=== PATIENT | male | born 1980 | race African-American/Black ===

== ENCOUNTER 2016-08-05 13:40 | Emergency (ER) | payer OTHER ==
[2016-08-05 13:48] VITALS: BP 135/90; PULSE 102; TEMP 98.2; BMI 51.7
--- NOTE | 2016-08-05 13:53 | PDOC ---
History of Present Illness - General Chief Complaint: Nasal Bleeding Stated Complaint: Nasal Bleeding Time Seen by Provider: 08/05/16 13:51 History Source: Patient Exam Limitations: No Limitations - History of Present Illness Initial Comments: 36 y/o afebrile morbidly obese male with PMH HTN and DM c/o nose bleed today. The patient states he had a spontaneous nosebleed this afternoon that lasted approximately 20 minutes and stopped on its own. The patient is not on a blood thinner. He denies trauma to the nose. He does admit his eyes were watery and puffy yesterday. Past History - Past Medical History Allergies/Adverse Reactions: Allergies Allergy/AdvReac Type Severity Reaction Status Date / Time iodine Allergy Swelling Verified 08/05/16 13:48 shellfish derived Allergy Swelling Verified 08/05/16 13:48 Home Medications: Ambulatory Orders Cyclobenzaprine HCl [Flexeril -] 10 mg PO TID #21 tablet 08/07/13 Naproxen [Naprosyn -] 500 mg PO BID #14 tablet 08/07/13 Dementia: Yes HTN: Yes Hypercholesterolemia: Yes - Psycho/Social/Smoking Cessation Hx Anxiety: No Suicidal Ideation: No Smoking Status: Yes Smoking History: Current some day smoker Number of Cigarettes Smoked Daily: 1 Information on smoking cessation initiated: No Hx Alcohol Use: Yes (SOCIAL) Drug/Substance Use Hx: No Substance Use Type: None Review of Systems - Review of Systems Able to Perform ROS?: Yes Constitutional: No: Symptoms Reported HEENTM: Yes: Nose Bleeding, Other (watery, swollen eyes yesterday.). No: Recent change in vision Respiratory: No: Cough, Shortness of Breath Cardiac (ROS): No: Chest Pain Neurological: No: Headache *Physical Exam - Vital Signs Last Vital Signs Temp Pulse Resp BP Pulse Ox 98.2 F 102 H 20 135/90 96 08/05/16 13:45 08/05/16 13:45 08/05/16 13:45 08/05/16 13:45 08/05/16 13:45 - Physical Exam General Appearance: Yes: Obese (Morbidly obese) HEENT: positive: EOMI, YULIANA, Other (Left inflammed nasal turbinate) Neurologic: positive: transportation attendant II-XII NML intact, Fully Oriented, Alert Medical Decision Making - Medical Decision Making A/P: 36 y/o well appearing, morbidly obese, ambulatory male with a spontaneous nose bleed that has resolved. Reassured the patient. Suggested he apply pressure to bridge of nose and hold head down if it starts bleeding again. Instructed to call his PCP within 1 week if symptoms persist and return to the ER if he develops a nose bleed that does not stop. The patient verbalizes understanding of all instructions, has no further questions and is awaiting discharge. *DC/Admit/Observation/Transfer Diagnosis at time of Disposition: Nosebleed - Discharge Dispostion Disposition: HOME Condition at time of disposition: Good - Referrals Referrals: Abhishek Deleon MD [Primary Care Provider] - - Patient Instructions Printed Discharge Instructions: DI for Nosebleed Additional Instructions: Discharge Instructions: -Return to the ER with any worsening or concerning symptoms
== END 2016-08-05 14:06 | disposition home or self-care (01) ==
LOC: JERFT 13:40
DX: R04.0 Epistaxis (principal); I10 Essential (primary) hypertension; F03.90 Unspecified dementia, unspecified severity, without behavioral disturbance, psychotic disturbance, mood disturbance, and anxiety; E78.00 Pure hypercholesterolemia, unspecified; F17.210 Nicotine dependence, cigarettes, uncomplicated
CPT/HCPCS: 99281-25

== ENCOUNTER 2016-08-14 07:06 | Emergency (ER) | payer OTHER ==
[2016-08-14 07:25] VITALS: TEMP 98; BMI 36.5
[2016-08-14] MEDS ORDERED: LORAZEPAM CARPU-JECT 2 MG/ML DISP.SYRIN IVPUSH ONE (07:45)
[2016-08-14] MEDS ORDERED: SODIUM CHLORIDE 1,000 ML IV STA (07:45)
--- NOTE | 2016-08-14 07:46 | PDOC ---
History of Present Illness - General History Source: Patient, Sibling (Sister) Exam Limitations: No Limitations - History of Present Illness Initial Comments: 08/14/16 08:18 The patient is a 36 year old male with a significant past medical history of diabetes, hypertension, and multiple substance abuse, who presents to the ER with chest pain and agitation for one day. Sister is at bedside. Patient admits to doing PCP and alcohol every day for the past three days. Sister brought patient to the hospital after patient started complaining of chest pain. Patient is unable to characterize the specific of the pain. As per sister, patient has been more agitated and verbally inappropriate for the past few days. Denies nausea, vomiting Denies syncope Denies hallucinations Denies any other drug use Denies fever, chills, cough, shortness of breath 08/14/16 08:56 Paranoid is currently paranoid that someone will come for him and kill him. <Fadia Boo - Last Filed: 08/14/16 09:17> - General History Source: Patient, Family Exam Limitations: Clinical Condition <Mimi Welsh - Last Filed: 08/16/16 21:34> - General Chief Complaint: Substance Abuse Stated Complaint: INGESTION OF FOREGN STUBSTANCE Time Seen by Provider: 08/14/16 07:27 Past History <Fadia Boo - Last Filed: 08/14/16 09:17> - Past Medical History Dementia: Yes Diabetes: Yes HTN: Yes Hypercholesterolemia: Yes - Immunization History Immunization Up to Date: Yes - Psycho/Social/Smoking Cessation Hx Anxiety: No Suicidal Ideation: No Smoking Status: Yes Smoking History: Current some day smoker Have you smoked in the past 12 months: Yes Number of Cigarettes Smoked Daily: 2 Information on smoking cessation initiated: Yes 'Breaking Loose' booklet given: 08/14/16 Hx Alcohol Use: Yes Drug/Substance Use Hx: Yes (pcp) Substance Use Type: Opiates <Mimi Welsh - Last Filed: 08/16/16 21:34> - Past Medical History Allergies/Adverse Reactions: Allergies Allergy/AdvReac Type Severity Reaction Status Date / Time iodine Allergy Swelling Verified 08/14/16 07:12 shellfish derived Allergy Swelling Verified 08/14/16 07:12 Home Medications: Ambulatory Orders Unobtainable 08/14/16 Review of Systems - Review of Systems Able to Perform ROS?: Yes Comments:: 08/14/16 08:18 GENERAL/CONSTITUTIONAL: (+) Agitation. No: fever, chills, weakness, loss of appetite. HEAD, EYES, EARS, NOSE AND THROAT: No: change in vision, ear pain, discharge, sore throat, throat swelling. CARDIOVASCULAR: (+) Chest pain. No: lightheadedness, palpitations, syncope RESPIRATORY: No: cough, shortness of breath, wheezing, hemoptysis, stridor. GASTROINTESTINAL: No: nausea, vomiting, abdominal cramping, diarrhea, rectal bleeding, constipation. GENITOURINARY: No: dysuria, hematuria, frequency, urgency, flank pain. MUSCULOSKELETAL: No: back pain, neck pain, joint pain, muscle swelling or pain SKIN AND BREASTS: No: lesions, pallor, rash or easy bruising. NEUROLOGIC: No: headache, vertigo, paresthesias, weakness ENDOCRINE: No: unexplained weight gain or loss HEMATOLOGIC/LYMPHATIC: No: anemia, easy bleeding, swelling nodes <Uts,Fadia - Last Filed: 08/14/16 09:17> *Physical Exam - Vital Signs Last Vital Signs Temp Pulse Resp BP Pulse Ox 98.0 F 114 H 20 0/0 100 08/14/16 07:13 08/14/16 07:13 08/14/16 07:13 08/14/16 07:13 08/14/16 07:13 - Physical Exam Comments: 08/14/16 08:20 GENERAL: Agitated. HEAD: Normal with no signs of trauma. EYES: PERRLA, EOMI, sclera anicteric, conjunctiva clear. ENT: Ears normal, nares patent, oropharynx clear without exudates. Moist mucous membranes. NECK: Normal range of motion, supple without lymphadenopathy, JVD, or masses. LUNGS: Breath sounds equal, clear to auscultation bilaterally. No wheezes, and no crackles. HEART: Tachycardia. Regular rhythm, normal S1 and S2 without murmur, rub or gallop. ABDOMEN: Soft, nontender, normoactive bowel sounds. No guarding, no rebound. EXTREMITIES: Normal range of motion, no edema. No clubbing or cyanosis. No erythema, or tenderness. NEUROLOGICAL: Cranial nerves II through XII grossly intact. Normal speech. No focal neurological deficits. MUSCULOSKELETAL: Back non-tender to palpation, no CVA tenderness SKIN: Warm, Dry, normal turgor, no rashes or lesions noted. <Fadia Boo - Last Filed: 08/14/16 09:17> - Vital Signs Last Vital Signs Temp Pulse Resp BP Pulse Ox 98.0 F 114 H 20 0/0 100 08/14/16 07:13 08/14/16 07:13 08/14/16 07:13 08/14/16 07:13 08/14/16 07:13 <Mimi Welsh - Last Filed: 08/16/16 21:34> Heart Score/ECG Review #1 ECG reviewed & interpreted by me at: 07:56 08/14/16 07:56 Twelve-lead EKG was performed and reviewed by me. There is normal sinus rhythm with a tachycardiac rate. The axis is normal. The intervals are normal. There are no ST or T wave abnormalities. <Mimi Welsh - Last Filed: 08/16/16 21:34> ED Treatment Course - LABORATORY CBC & Chemistry Diagram: 08/14/16 08:30 08/14/16 08:30 <Fadia Boo - Last Filed: 08/14/16 09:17> - LABORATORY CBC & Chemistry Diagram: 08/14/16 08:30 08/14/16 08:30 <Mimi Welsh - Last Filed: 08/16/16 21:34> Medical Decision Making - Critical Care Time Total Critical Care Time (minutes): 60 Critical Care Statement: The care of this patient involved high complexity decision making to prevent further life threatening deterioration of the patient 's condition and/or to evalute & treat vital organ system(s) failure or risk of failure. - Medical Decision Making 08/14/16 07:46 A portion of this note was documented by scribe services under my direction. I have reviewed the details of the note, within reason, and agree with the documentation with the following case summary and management plan written by me. Nursing documentation reviewed and incorporated into medical decision making 08/14/16 08:10 This is a 36-year-old male brought in by his sister due to agitation. He has a history of diabetes, hypertension, hyperlipidemia, morbid obesity. Patient admits to using PCP over the last 4 days, as well as alcohol. Patient denies any trauma. Patient states yesterday he had chest pain, but is unable to characterize this any further. Patient admits to chronic back pain. He's had no nausea, vomiting, diarrhea. Patient is agitated on my examination but is redirectable and calmed when spoken to His sister is at bedside and is able to calm him He is intermittently tearful when speaking about his brother On examination: Tachycardiac Pt is agitated Dry musous membranes 08/14/16 08:14 08/14/16 09:13 Pt repeatedly stating that he is going to be killed Someone is coming to kill him Pt is hypersexual States that he wants to have sex with staff members [employer] called to assist restraining patient Pt given Haldol 5mg, Versed 2mg and Benadryl 50 IM Pt in stretcher with lights off 08/14/16 09:20 Laboratory Tests 08/14/16 08/14/16 08:30 08:30 WBC 8.0 Hgb 15.2 Hct 45.7 Plt Count 255 BUN 9 D Creatinine 0.8 AST 83 H D ALT 130 H D Creatine Kinase 201 Troponin I < 0.02 Awaiting Drug Screening 08/14/16 10:13 Laboratory Tests 08/14/16 08:46 Phencyclidine Screen Positive Pt is resting comfortably Family would like him to go to detox will assess this once pt awakens 08/14/16 11:29 Pt rolled over in bed Resting comfortably Breathing not laboured 08/14/16 12:51 Pt is resting comfortably Pt sister outside of his room 08/14/16 14:20 call placed to Detox They do not have beds I have asked [facility] to speak with this patient's sister to arrange outpatient follow up 08/14/16 15:09 Pt sister is concerned about that patient is suicidal Call placed to Dr mckeon He does not think this is an appropriate consult unless pt himself states that he is suicidal 08/14/16 15:57 Case reviewed again with Dr mckeon He will see this patient in the ER 08/14/16 17:04 Pt awake Seen by Dr. Mckeon Cleared for discharge <Mimi Welsh - Last Filed: 08/16/16 21:34> *DC/Admit/Observation/Transfer - Attestations Scribe Attestion: 08/14/16 08:24 Documentation prepared by Fadia Boo, acting as paramedical aide for Mimi Welsh MD. <Fadia Boo - Last Filed: 08/14/16 09:17> - Discharge Dispostion Admit: No <Mimi Welsh - Last Filed: 08/16/16 21:34> Diagnosis at time of Disposition: Drug use - Discharge Dispostion Disposition: HOME - Referrals Referrals: Abhishek Deleon MD [Primary Care Provider] - - Patient Instructions Printed Discharge Instructions: DI for Drug Abuse and Drug Addiction Additional Instructions: Thank you for coming to the ER today Please avoid any drug use We do not have inpatient beds in the detox unit You can come back to the [facility] detox program if you would like to do outpatient Detox Return to the ER for any other concerns or complaints
[2016-08-14] MEDS ORDERED: LORAZEPAM CARPU-JECT 2 MG/ML DISP.SYRIN ONE (08:09)
[2016-08-14 08:43] LABS: BASOPHIL 1.2 % (0-2.0); EOSINOPHIL 2.5 % (0-4.5); MCH 30.5 pg (25.7-33.7); MCHC 33.2 g/dl (32.0-35.9); MEAN CELL VOLUME 91.9 fl (80-96); MEAN PLT VOLUME 8.7 fl (7.5-11.1); NEUTROPHILS 53.8 % (42.8-82.8); PLATELET COUNT 255 K/MM3 (134-434); RDW 13.2 % (11.9-15.9)
[2016-08-14] MEDS ORDERED: MIDAZOLAM HCL 2 MG/2 ML SINGLE DOSE VIAL ONE (08:57)
[2016-08-14] MEDS ORDERED: MIDAZOLAM HCL 2 MG/2 ML SINGLE DOSE VIAL IM ONE (08:57)
[2016-08-14] MEDS ORDERED: HALOPERIDOL LACTATE 5 MG/ML IM ONE (08:57)
[2016-08-14] MEDS ORDERED: HALOPERIDOL LACTATE 5 MG/ML ONE (08:58)
[2016-08-14 09:05] LABS: ALBUMIN 3.8 g/dl (3.4-5.0); ANION GAP 11 (8-16); BILIRUBIN,TOTAL 0.4 mg/dL (0.2-1.0); CALCIUM 9.8 mg/dL (8.5-10.1); CO2 26 mmol/L (21-32); CREATININE 0.8 mg/dL (0.7-1.3); GLUCOSE,RANDOM 214 mg/dL (74-106); SGOT/AST 83 U/L (15-37); SGPT/ALT 130 U/L (12-78)
[2016-08-14 09:07] LABS: URINE MARIJUANA THC NEGATIVE ng/ml (CUTOFF=50)
[2016-08-14 09:09] LABS: ALK PHOS 93 U/L (45-117); TOT PROT 7.7 g/dl (6.4-8.2); TROPONIN I < 0.02 ng/ml (0.00-0.05)
[2016-08-14 09:21] LABS: SALICYLATE < 4.0 mg/dl (0.0-30.0)
--- NOTE | 2016-08-14 10:30 | EKG ---
Test Reason : Blood Pressure : / mmHG Vent. Rate : 100 BPM Atrial Rate : 100 BPM P-R Int : 144 ms QRS Dur : 090 ms QT Int : 350 ms P-R-T Axes : 022 069 035 degrees QTc Int : 451 ms POOR DATA QUALITY, INTERPRETATION MAY BE ADVERSELY AFFECTED NORMAL SINUS RHYTHM NO PREVIOUS ECGS AVAILABLE Confirmed by RENEA ALSTON MD ([id number]) on 08/14/2016 10:29:50 AM Referred By: Confirmed By:RENEA ALSTON MD
[2016-08-14 10:45] LABS: ALCOHOL < 5.0 mg/dl (0-5)
--- NOTE | 2016-08-14 16:54 | CON.PSY ---
Psychiatry Consult Chief Complaint: been doing PCP for a month. I am not going to kill myself or others. I am ok now. - Previous Psychiatric Treatment Outpatient: None Inpatient: None - Previous Substance Abuse Treatment Outpatient: None Inpatient: None - Allergies Allergies: Allergies Allergy/AdvReac Type Severity Reaction Status Date / Time iodine Allergy Swelling Verified 08/14/16 07:12 shellfish derived Allergy Swelling Verified 08/14/16 07:12 - Current Living Status Usual Living Arrangement: Alone - Current Mental Status Evaluation Appearance: Well Groomed Attitude: Cooperative - Affect Affect: Constrictive Appropriateness: Appropriate to Content - Mood Mood: Euthymic - Speech/Language Expressive: Coherent Receptive: Age Appropriate Comprehension of Spoken Words - Psychomotor Activity Psychomotor Activity: Slowed - Thought Process Thought Process: Intact - Thought Content Hallucinations: Absent Delusions: Absent - Self Perception Self Perception: No Impairment - Cognition Attention: Alert Orientation: Time Memory, Immediate Recall: Intact Memory, Short Term: 2/3 Memory, Remote with Promptin/3 - Concentration Serial Sevens Intact: No Simple Calculations Intact: No - Abstraction Proverb Interpretation: Intact Judgement: Minimally Impaired - Insight Insight: Intact - Impulse Control Impulse Control: Minimally Impaired - Suicidal Ideation Suicidal Ideation: No - Homicidal Ideation Homicidal Ideation: No Assessment/Plan 1) Patient is not suicidal or Homicidal. 2) Discharge when medically stable.
[2016-08-14 18:08] VITALS: BP 131/96; PULSE 74
== END 2016-08-14 18:50 | disposition home or self-care (01) ==
LOC: JER 07:06
PROC: 3E033NZ Introduction of Analgesics, Hypnotics, Sedatives into Peripheral Vein, Percutaneous Approach (ICD-10-PCS; principal; 2016-08-14)
PROC: 3E023NZ Introduction of Analgesics, Hypnotics, Sedatives into Muscle, Percutaneous Approach (ICD-10-PCS; 2016-08-14)
PROC: 3E023GC Introduction of Other Therapeutic Substance into Muscle, Percutaneous Approach (ICD-10-PCS; 2016-08-14)
PROC: 3E023GC Introduction of Other Therapeutic Substance into Muscle, Percutaneous Approach (ICD-10-PCS; 2016-08-14)
DX: F16.10 Hallucinogen abuse, uncomplicated (principal); F60.0 Paranoid personality disorder; I10 Essential (primary) hypertension; E11.9 Type 2 diabetes mellitus without complications; E78.00 Pure hypercholesterolemia, unspecified; F17.210 Nicotine dependence, cigarettes, uncomplicated
CPT/HCPCS: 36415; 80053; 80307; 82550; 82553; 84484; 85025; 93005; 93010; 96372; 96374; 99283-25

== ENCOUNTER 2017-03-03 14:29 | Emergency (ER) | payer OTHER ==
--- NOTE | 2017-03-03 14:36 | PDOC ---
Rapid Medical Evaluation Medical Evaluation: Allergies Allergy/AdvReac Type Severity Reaction Status Date / Time iodine Allergy Swelling Verified 08/14/16 07:12 shellfish derived Allergy Swelling Verified 08/14/16 07:12 03/03/17 14:35 I have performed a brief in-person evaluation of this patient. The patient presents with a chief complaint of: fell on ice, hurt R knee, twisted back Pertinent physical exam findings: ambulatory, full ROM to knee I have ordered the following: knee x-ray The patient will proceed to the ED for further evaluation. Discharge Disposition - Diagnosis Knee pain - Referrals Referrals: Abhishek Deleon MD [Primary Care Provider] - - Patient Instructions - Post Discharge Activity
[2017-03-03 14:38] VITALS: BP 155/101; PULSE 100; TEMP 98.6; BMI 51.7
[2017-03-03] MEDS ORDERED: IBUPROFEN 400 MG TABLET (FP) PO ONE ×2 (15:32→15:35)
--- NOTE | 2017-03-03 15:37 | PDOC ---
History of Present Illness - General Chief Complaint: Injury Stated Complaint: FALL Time Seen by Provider: 03/03/17 14:37 History Source: Patient - History of Present Illness Occurred: reports: this morning Lower Extremity Pain Location: right: knee Method of Injury: Yes: fell Past History - Past Medical History Allergies/Adverse Reactions: Allergies Allergy/AdvReac Type Severity Reaction Status Date / Time iodine Allergy Swelling Verified 03/03/17 14:38 shellfish derived Allergy Swelling Verified 03/03/17 14:38 Home Medications: Ambulatory Orders Metformin HCl [Metformin HCl ER] 500 mg PO ASDIR 03/03/17 COPD: No Dementia: No Diabetes: Yes HTN: Yes Hypercholesterolemia: Yes - Immunization History Immunization Up to Date: Yes - Suicide/Smoking/Psychosocial Hx Smoking Status: Yes Smoking History: Never smoked Have you smoked in the past 12 months: Yes Number of Cigarettes Smoked Daily: 2 'Breaking Loose' booklet given: 08/14/16 Hx Alcohol Use: No Drug/Substance Use Hx: No Substance Use Type: None Review of Systems - Review of Systems Musculoskeletal: Yes: Joint Pain, Joint Swelling *Physical Exam - Vital Signs Last Vital Signs Temp Pulse Resp BP Pulse Ox 98.6 F 100 H 20 155/101 97 03/03/17 14:33 03/03/17 14:33 03/03/17 14:33 03/03/17 14:33 03/03/17 14:33 - Physical Exam General Appearance: Yes: Appropriately Dressed. No: Apparent Distress HEENT: positive: Normal Voice Neck: positive: Supple Respiratory/Chest: negative: Respiratory Distress Extremity: positive: Normal Inspection, Tender, Other. negative: Swelling Integumentary: positive: Dry, Warm Neurologic: positive: Fully Oriented, Alert, Normal Mood/Affect Medical Decision Making - Medical Decision Making 03/03/17 15:32 37-year-old morbidly obese male with history of diabetes and high blood pressure , here with right knee pain after slip and fall on black ice at 2 AM today. Patient able to bear weight but painful. Denies any other injuries at this time. Patient well-appearing and stable with no obvious swelling or deformity, but has tenderness to palpation over site of lateral collateral ligament and possibly over patella. No e/o joint instability. Most likely sprain. X-ray ordered from triage. Pain control in progress 03/03/17 15:34 03/03/17 15:42 X-ray negative for fracture. Discharged with supportive treatment *DC/Admit/Observation/Transfer Diagnosis at time of Disposition: Right knee sprain Qualifiers: Encounter type: initial encounter Involved ligament of knee: unspecified ligament Qualified Code(s): S83.91XA - Sprain of unspecified site of right knee , initial encounter - Discharge Dispostion Disposition: HOME Condition at time of disposition: Good - Referrals Referrals: Abhishek Deleon MD [Primary Care Provider] - - Patient Instructions Printed Discharge Instructions: DI for Knee Sprain Additional Instructions: You have a mild knee sprain which can take 1-2 weeks to get better. The treatment is as follows: Rest: Rest is achieved by limiting weight bearing by using a cane until you are able to walk with a normal gait Pain: Take motrin as directed You have no swelling so ice, compression or elevation is not necessary Exercise:Once acute pain subsides, maintain range of motion by bending and extending knee If significant pain or other symptoms is still present after 2 weeks, please follow-up with orthopedics - Post Discharge Activity Forms/Work/School Notes: Back to Work
== END 2017-03-03 15:45 | disposition home or self-care (01) ==
LOC: JERFT 14:29
DX: S83.91XA Sprain of unspecified site of right knee, initial encounter (principal); X58.XXXA Exposure to other specified factors, initial encounter; Y93.9 Activity, unspecified; Y92.9 Unspecified place or not applicable; E11.9 Type 2 diabetes mellitus without complications; I10 Essential (primary) hypertension
CPT/HCPCS: 73562-TC-RT; 99281-25

== ENCOUNTER 2017-11-15 17:49 | Emergency (ER) | payer OTHER ==
--- NOTE | 2017-11-15 17:53 | PDOC ---
Rapid Medical Evaluation Time Seen by Provider: 11/15/17 17:52 Medical Evaluation: Allergies Allergy/AdvReac Type Severity Reaction Status Date / Time iodine Allergy Swelling Verified 03/03/17 14:38 shellfish derived Allergy Swelling Verified 03/03/17 14:38 11/15/17 17:52 The patient presents with a chief complaint of: elevated glucose I have performed a brief in-person evaluation of this patient. Pertinent physical exam findings: vss, stable I have ordered the following: labs The patient will proceed to the ED for further evaluation.
[2017-11-15 17:55] VITALS: BMI 48.7
[2017-11-15 18:48] LABS: BASO % 0.3 % (0-2.0); EOS % 4.1 % (0-4.5); HEMATOCRIT 46.2 % (35.4-49); HEMOGLOBIN 15.8 GM/dL (11.7-16.9); LYMPH % 39.6 % (8-40); MCH 29.5 pg (25.7-33.7); MCHC 34.1 g/dl (32.0-35.9); MEAN CELL VOLUME 86.5 fl (80-96); MEAN PLT VOLUME 9.4 fl (7.5-11.1); MONO % 6.9 % (3.8-10.2); NEUT % 49.1 % (42.8-82.8); PLATELET COUNT 297 K/MM3 (134-434); RBC 5.35 M/mm3 (4.00-5.60); RDW 12.8 % (11.9-15.9); WHITE BLOOD COUNT 8.8 K/mm3 (4.0-10.0)
[2017-11-15 19:04] LABS: URINE APPEARANCE CLEAR; URINE BILIRUBIN NEGATIVE (<2.0 mg/dL); URINE COLOR STRAW; URINE GLUCOSE (UA) 3+ (NEGATIVE); URINE KETONE NEGATIVE (NEGATIVE); URINE LEUK ESTERASE NEGATIVE (NEGATIVE); URINE NITRITE NEGATIVE (NEGATIVE); URINE PROTEIN NEGATIVE (NEGATIVE); URINE UROBILINOGEN NEGATIVE mg/dL (0.2-1.0)
[2017-11-15 19:28] LABS: ALBUMIN 4.4 g/dl (3.4-5.0); ALK PHOS 132 U/L (45-117); ANION GAP 12 MMOL/L (8-16); BILIRUBIN,TOTAL 0.4 mg/dL (0.2-1); BLOOD UREA NITROGEN 12 mg/dL (7-18); CALCIUM 10.6 mg/dL (8.5-10.1); CHLORIDE 99 mmol/L (98-107); CO2 24 mmol/L (21-32); CREATININE 1.1 mg/dL (0.55-1.3); POTASSIUM 4.2 mmol/L (3.5-5.1); SGOT/AST 19 U/L (15-37); SGPT/ALT 54 U/L (13-61); SODIUM 134 mmol/L (136-145); TOT PROT 9.2 g/dl (6.4-8.2)
[2017-11-15 19:30] LABS: GLUCOSE,RANDOM 447 mg/dL (74-106)
[2017-11-15] MEDS ORDERED: SODIUM CHLORIDE 1,000 ML IV STA ×2 (19:30→21:51)
--- NOTE | 2017-11-15 19:31 | PDOC ---
History of Present Illness - General Chief Complaint: Blood Sugar Problem Stated Complaint: BLOOD SUGAR PROBLEM Time Seen by Provider: 11/15/17 17:52 - History of Present Illness Initial Comments: 11/15/17 20:04 37-year-old male reports that for the last 1-1/2 weeks patient has been having polyuria. Today checked his blood sugar noted to be reading high on monitor. Denies headache, chest pain, dizziness, nausea, vomiting. Patient reports that he is currently on hypertension and diabetes medication (metformin) as per patient patient hasn't taken the medication for weeks. Past History - Past Medical History Allergies/Adverse Reactions: Allergies Allergy/AdvReac Type Severity Reaction Status Date / Time iodine Allergy Swelling Verified 11/15/17 17:55 shellfish derived Allergy Swelling Verified 11/15/17 17:55 Home Medications: Ambulatory Orders Amlodipine Besylate [Norvasc -] 5 mg PO DAILY #30 tablet 11/15/17 metFORMIN HCL [Metformin HCl] 1,000 mg PO DAILY #30 tablet 11/15/17 COPD: No Dementia: No Diabetes: Yes HTN: Yes Hypercholesterolemia: Yes - Immunization History Immunization Up to Date: Yes - Suicide/Smoking/Psychosocial Hx Smoking Status: Yes Smoking History: Never smoked Have you smoked in the past 12 months: Yes Number of Cigarettes Smoked Daily: 2 'Breaking Loose' booklet given: 08/14/16 Hx Alcohol Use: No Drug/Substance Use Hx: No Substance Use Type: None Review of Systems - Review of Systems Able to Perform ROS?: Yes Is the patient limited German proficient: No Constitutional: No: Symptoms Reported, See HPI, Chills, Diaphoresis, Fever, Loss of Appetite, Malaise, Night Sweats, Weakness, Weight Stable, Unintentional Wgt. Loss, Unexplained wgt Loss, Other : Yes: Frequency Endocrine: Yes: Increased Thirst Hematologic/Lymphatic: No: Symptoms Reported, See HPI, Anemia, Blood Clots, Easy Bleeding, Easy Bruising, Bleeding Diathesis, Lymph Node Abnormalities, Swollen Glands, Other *Physical Exam - Vital Signs Last Vital Signs Temp Pulse Resp BP Pulse Ox 97 F L 97 H 18 175/127 98 11/15/17 17:51 11/15/17 17:51 11/15/17 17:51 11/15/17 17:51 11/15/17 17:51 - Physical Exam General Appearance: Yes: Appropriately Dressed, Obese Respiratory/Chest: positive: Lungs Clear, Normal Breath Sounds Cardiovascular: positive: Regular Rhythm, Regular Rate Gastrointestinal/Abdominal: positive: Normal Bowel Sounds, Soft Musculoskeletal: positive: Normal Inspection Extremity: positive: Normal Capillary Refill, Normal Inspection, Normal Range of Motion Integumentary: positive: Normal Color, Dry, Warm Neurologic: positive: Fully Oriented, Alert, Normal Mood/Affect ED Treatment Course - LABORATORY CBC & Chemistry Diagram: 11/15/17 18:38 11/15/17 18:38 - ADDITIONAL ORDERS Additional order review: Laboratory Results 11/15/17 11/15/17 18:38 18:38 Sodium 134 L Potassium 4.2 Chloride 99 Carbon Dioxide 24 Anion Gap 12 BUN 12 Creatinine 1.1 Creat Clearance w eGFR > 60 Random Glucose 447 H* Calcium 10.6 H Total Bilirubin 0.4 AST 19 ALT 54 Alkaline Phosphatase 132 H Total Protein 9.2 H Albumin 4.4 Urine Color Straw Urine Appearance Clear Urine pH 5.0 Ur Specific Haddock 1.031 Urine Protein Negative Urine Glucose (UA) 3+ H Urine Ketones Negative Urine Blood Negative Urine Nitrite Negative Urine Bilirubin Negative Urine Urobilinogen Negative Ur Leukocyte Esterase Negative 11/15/17 18:38 RBC 5.35 MCV 86.5 MCHC 34.1 RDW 12.8 MPV 9.4 Neutrophils % 49.1 Lymphocytes % 39.6 Monocytes % 6.9 Eosinophils % 4.1 Basophils % 0.3 Medical Decision Making - Medical Decision Making 11/15/17 20:10 A: hyperglycemia; hypertension P: labs UA IVF BGM will give clonidine and reevaluate. *DC/Admit/Observation/Transfer Diagnosis at time of Disposition: Hyperglycemia Hypertension Qualifiers: Hypertension type: essential hypertension Qualified Code(s): I10 - Essential ( primary) hypertension - Discharge Dispostion Disposition: HOME Condition at time of disposition: Stable - Prescriptions Prescriptions: Amlodipine Besylate [Norvasc -] 5 mg PO DAILY #30 tablet metFORMIN HCL [Metformin HCl] 1,000 mg PO DAILY #30 tablet - Referrals Referrals: Andrei Walsh MD [Primary Care Provider] - Ayan Wall MD [Staff Physician] - Call tomorrow - Patient Instructions Printed Discharge Instructions: DI for Hyperglycemia -- Adult Additional Instructions: please continue your blood pressure medication and your diabetes medication. drink plenty of fluids. follow up with your doctor as soon as possible. - Post Discharge Activity Forms/Work/School Notes: Back to Work
[2017-11-15] MEDS ORDERED: cloNIDine HCL 0.1 MG TABLET PO ONE (20:11)
[2017-11-15] MEDS ORDERED: cloNIDine HCL 0.1 MG TABLET ONE (20:38)
[2017-11-15 21:58] LABS: VENOUS PC02 48.6 mmHg (38-52); VENOUS PH 7.34 (7.32-7.42); VENOUS PO2 43.8 mmHg (28-48)
[2017-11-15] MEDS ORDERED: INSULIN REGULAR HUMAN 100 UNITS/ML *VIAL IVPUSH ONE (23:32)
[2017-11-15 23:34] VITALS: BP 126/80; PULSE 88; TEMP 98.5
[2017-11-15] MEDS ORDERED: INSULIN REGULAR HUMAN 100 UNITS/ML *VIAL ONE (23:36)
== END 2017-11-15 23:41 | disposition home or self-care (01) ==
LOC: JER 17:49
PROC: 3E0337Z Introduction of Electrolytic and Water Balance Substance into Peripheral Vein, Percutaneous Approach (ICD-10-PCS; principal; 2017-11-15)
PROC: 3E033VG Introduction of Insulin into Peripheral Vein, Percutaneous Approach (ICD-10-PCS; 2017-11-15)
DX: E11.65 Type 2 diabetes mellitus with hyperglycemia (principal); Z79.84 Long term (current) use of oral hypoglycemic drugs; I10 Essential (primary) hypertension; E78.00 Pure hypercholesterolemia, unspecified
CPT/HCPCS: 36415; 80053; 81003; 82009; 82803; 82962; 85025; 96361; 96374; 99283-25; J0735; J7030

== ENCOUNTER 2020-03-28 17:06 | Emergency (ER) | payer OTHER ==
[2020-03-28 17:32] VITALS: BMI 44.3
[2020-03-28] MEDS ORDERED: amLODIPine BESYLATE 5 MG TABLET (FP) PO ONE (18:32)
[2020-03-28] MEDS ORDERED: amLODIPine BESYLATE 5 MG TABLET (FP) ONE (18:34)
[2020-03-28] MEDS ORDERED: KETOROLAC TROMETHAMINE 60 MG/2 ML VIAL IM ONE (18:36)
[2020-03-28] MEDS ORDERED: CYCLOBENZAPRINE HCL 10 MG TABLET (FP) PO ONE (18:36)
[2020-03-28] MEDS ORDERED: KETOROLAC TROMETHAMINE 30 MG/1 ML VIAL ONE (18:37)
[2020-03-28] MEDS ORDERED: CYCLOBENZAPRINE HCL 10 MG TABLET (FP) ONE (18:37)
[2020-03-28 20:01] VITALS: BP 164/85; PULSE 89; TEMP 98.5
== END 2020-03-28 20:00 | disposition home or self-care (01) ==
LOC: JERFT 17:06
PROC: 3E0233Z Introduction of Anti-inflammatory into Muscle, Percutaneous Approach (ICD-10-PCS; principal; 2020-03-28)
DX: M54.5 Low back pain (principal)
CPT/HCPCS: 72100-TC-FY; 99284-25